=== PATIENT | female | born 1960 | race Caucasian/White ===

== ENCOUNTER → 2017-04-25 | Outpatient (CLI) | payer BC ==
[~2017-04-25] MED LIST: AFRIN15 ML NS; CENTRUM SILVER1 EAC4 PO; CIPROFLOXACIN500 M1 PO; DAYTIME COLD PO; FLEXERIL PO; IBUPROFEN 600600 M1 PO; NORCO 5-325 TA1 EACH PO; ONDANSETRON HCL4 M2 PO; PREVACID30 M1 PO; SOY50 MG PO; TUMERSAID TABL1 EACH PO; [UNRECOGNIZED DRUG - OTHER] PO
== END ==
LOC: CAT 09:14
DX: R06.02 Shortness of breath (principal); R06.00 Dyspnea, unspecified; R07.9 Chest pain, unspecified

== ENCOUNTER → 2018-05-18 | Outpatient (CLI) | payer BC | LOC: ULTRA 09:08 | DX: I70.8 Atherosclerosis of other arteries (principal); H54.61 Unqualified visual loss, right eye, normal vision left eye; K21.9 Gastro-esophageal reflux disease without esophagitis ==

== ENCOUNTER → 2020-12-05 | Outpatient (CLI) | payer BC | LOC: LAB 07:49 | PROVIDERS: ATTEND Anesthesiology | DX: Z01.812 Encounter for preprocedural laboratory examination (principal); Z20.822 Contact with and (suspected) exposure to COVID-19 ==